=== PATIENT | female | born 1960 | race Caucasian/White ===

== ENCOUNTER 2018-03-18 03:53 | Emergency (ER) | payer BC ==
[2018-03-18 04:03] VITALS: BP 156/79
[2018-03-18] MEDS ORDERED: HYDROCODONE/ACETAMINOPHEN 5-325 MG (6 TAB/ER DISP) PO PRN (04:33)
--- NOTE | 2018-03-18 04:40 | ER Document Report ---
HPI - HPI Patient complains to provider of: right shoulder and neck pain Time Seen by Provider: 03/18/18 04:20 Pain Level: 2 Context: Patient is a 58-year-old female that comes to the emergency department for chief complaint of right neck and shoulder pain. She states that it has been getting tighter progressively and tonight she woke up and could not go back to sleep. She states that she has the area massaged and the muscles rubbed she gets some relief but she cannot get comfortable. She denies numbness, fever, chest pain, shortness of breath, dizziness, headache, back symptoms, incontinence. She does not recall an injury. Past medical history of anxiety and hyperlipidemia. Treated with citalopram. Denies any recreational drug history. - REPRODUCTIVE Reproductive: DENIES: : Past Medical History - General Information source: Patient - Social History Smoking Status: Never Smoker Frequency of alcohol use: None Drug Abuse: None Lives with: Family Family History: Reviewed & Not Pertinent - Past Medical History Cardiac Medical History: Reports: Hx Hypercholesterolemia Psychiatric Medical History: Reports: Hx Anxiety - Immunizations Immunizations up to date: Yes Hx Diphtheria, Pertussis, Tetanus Vaccination: Yes Vertical Provider Document - CONSTITUTIONAL General Appearance: WD/WN, Mild Distress - Patient has obvious pain with movement and is sitting slightly stiffly but she does not appear to be in any severe distress - INFECTION CONTROL TRAVEL OUTSIDE OF THE [place] IN LAST 30 DAYS: No - HEENT HEENT: Atraumatic, Normal ENT Exam, Normocephalic - RESPIRATORY Respiratory: Breath Sounds Normal, No Respiratory Distress - CARDIOVASCULAR Cardiovascular: Regular Rate, Regular Rhythm - GI/ABDOMEN Gastrointestinal: Abdomen Soft, Abdomen Non-Tender - BACK Back: negative: Normal Inspection - Tender in the right paracervical muscles with tightness and spasm. Pain along the right trapezius muscle as well. Pain with range of motion of the right arm/shoulder. Pain with lateral range of motion, normal flexion and extension, range of motion is still intact. No midline tenderness, no saddle anesthesia, no signs of trauma. Normal upper and lower extremity range of motion, normal strength, normal distal neurovascular exam. - MUSCULOSKELETAL/EXTREMETIES Musculoskeletal/Extremeties: MAEW, FROM, Non-Tender - NEURO Level of Consciousness: Awake, Alert, Appropriate - DERM Integumentary: Warm, Dry, No Rash Course - Re-evaluation Re-evalutation: Patient has very specific point tenderness along the right paracervical musculature and right trapezius muscle. This is worse with movement and easily reproducible. No additional symptoms reported. I did discuss potentially doing cardiac workup to be extremely thorough but this was declined after discussion. No evidence of neurological deficit. Appears to be strictly musculoskeletal. Provided with symptom management and treatment instructions, discussed follow-up and strict return precautions. Patient states satisfaction and agreement with plan. Stable at time of discharge. - Vital Signs Vital signs: Temp Pulse Resp BP Pulse Ox 97.5 F 70 14 156/79 H 99 03/18/18 04:02 03/18/18 04:02 03/18/18 04:02 03/18/18 04:02 03/18/18 04:02 Discharge - Discharge Clinical Impression: Neck pain Right shoulder pain Qualifiers: Chronicity: acute Qualified Code(s): M25.511 - Pain in right shoulder Condition: Stable Disposition: HOME, SELF-CARE Additional Instructions: Your evaluation is most consistent with right paracervical and trapezius muscle strain and spasm. Take medication as prescribed for muscle spasm, apply heat, do gentle stretches, massage can help. This should gradually resolve with time. You can take ov [id number] anti-inflammatories with the medication as well. Follow-up with primary care. Return if you worsen including headache, numbness, fever, chest pain, shortness of breath, weakness on one side of your body, or any other concerning or worsening symptoms. Prescriptions: Diazepam [Valium 5 mg Tablet] 1 - 2 tab PO TID PRN #12 tablet PRN Reason: Referrals: KAROLINA LIRIANO MD [Primary Care Provider] - Follow up as needed
== END 2018-03-18 04:55 | disposition home or self-care (01) ==
LOC: ER 03:53
DX: M54.2 Cervicalgia (principal); M25.511 Pain in right shoulder
CPT/HCPCS: 99283